=== PATIENT | male | born 1985 | race Caucasian/White ===

== ENCOUNTER 2016-11-23 14:37 | Emergency (ER) | payer SELFPAY ==
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
--- NOTE | 2016-11-23 16:05 | ED ORDER SUMMARY ---
..... Patient: JUAN CARLOS SALDANA OrderSheet [facility] VisitID: [id number] [address] [place] [address] 31y, M Registration Date/Time: 11/23/2016 ORDER SHEET Weight: 86.1 kg (estimated) Allergies: None GENERAL ORDERS: Lumbar Spine 2 or 3V Urgent (15:12 11/23/2016 HBivens A.R.N.P.) ([facility] (15:52 MC[facility]) Knee 4V Right Urgent (15:12 11/23/2016 HBivens A.R.N.P.) (15:13 HBivens A.R.N.P.) (Cancelled: Other15:13 HBivens A.R.N.P.) Knee 4V Right Urgent (15:36 11/23/2016 HBivens A.R.N.P.) (Ack 15:43 [facility] (15:52 MCampbell) MEDICATION ORDERS: IV FLUIDS: ORDER SHEET NOTES: [Electronically signed by Julia DockeryR.N.PBello (16:51 11/23/2016)] [Electronically signed by Fiorella Jackson R.N. (07:19 11/30/2016)] [Electronically locked/signed by Fiorella Jackson R.N. (07:19 11/30/2016)]
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
--- NOTE | 2016-11-23 16:05 | ED ORDER SUMMARY ---
..... Patient: JUAN CARLOS SALDANA OrderSheet [facility] VisitID: [id number] [address] [place] [address] 31y, M Registration Date/Time: 11/23/2016 ORDER SHEET Weight: 86.1 kg (estimated) Allergies: None GENERAL ORDERS: Lumbar Spine 2 or 3V Urgent (15:12 11/23/2016 HBivens A.R.N.P.) (Ack 15:34 [facility] (15:52 MCampbell) Knee 4V Right Urgent (15:12 11/23/2016 HBivens A.R.N.P.) (15:13 HBivens A.R.N.P.) (Cancelled: Other15:13 HBivens A.R.N.P.) Knee 4V Right Urgent (15:36 11/23/2016 HBivens A.R.N.P.) (Ack 15:43 [facility] (15:52 MCampbell) MEDICATION ORDERS: IV FLUIDS: ORDER SHEET NOTES: [Electronically signed by Julia DockeryR.N.PBello (16:51 11/23/2016)] [Electronically signed by Fiorella Jackson R.N. (07:19 11/30/2016)] [Electronically locked/signed by Fiorella Jackson R.N. (07:19 11/30/2016)]
--- NOTE | 2016-11-30 07:20 | ED MAR SUMMARY ---
..... Medication Administration Record [facility] [address], [place] [id number] Patient: JUAN CARLOS SALDANA Visit ID: [id number] 31y, M Weight: 86.1 kg Height/Length: 71 in BMI: 26.5 ALLERGIES: None
--- NOTE | 2016-11-30 07:20 | ED MED RECONCILIATION SUMMARY ---
Patient: JUAN CARLOS SALDANA Medication Reconciliation Report [facility] VisitID: [id number] [place] [address] 31y, M Registration Date/Time: 11/23/2016 Weight: 86.1 kg Height/Length: 71 in. BMI: 26.5 ALLERGIES: None The patient's Home Medications are listed below: NONE. The source(s) of the original Home Medication information: Not obtained. The following Medications were given to the patient in the Emergency Department: None. The following Medications were prescribed to the patient: Naproxen 500 mg tablets: take 1 orally every 12 hours as needed for pain. Dispense twenty (20). No refills. -- Julia Dockery A.R.NBelloP. Flexeril 10 mg: Take 1 orally every 8 hours as needed for muscle spasm. Dispense twenty (20). No refills. Substitution is permissible. -- Julia Dockery A.R.NBelloP.
--- NOTE | 2016-11-30 07:20 | ED MED RECONCILIATION SUMMARY ---
Patient: JUAN CARLOS SALDANA Medication Reconciliation Report [facility] VisitID: [id number] [place] [address] 31y, M Registration Date/Time: 11/23/2016 Weight: 86.1 kg Height/Length: 71 in. BMI: 26.5 ALLERGIES: None The patient's Home Medications are listed below: NONE. The source(s) of the original Home Medication information: Not obtained. The following Medications were given to the patient in the Emergency Department: None. The following Medications were prescribed to the patient: Naproxen 500 mg tablets: take 1 orally every 12 hours as needed for pain. Dispense twenty (20). No refills. -- Julia Dockery A.R.NBelloP. Flexeril 10 mg: Take 1 orally every 8 hours as needed for muscle spasm. Dispense twenty (20). No refills. Substitution is permissible. -- Julia Dockery A.R.NBelloP.
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
--- NOTE | 2016-11-30 07:20 | ED MAR SUMMARY ---
..... Medication Administration Record [facility] [address] [place], [place] [id number] Patient: JUAN CARLOS SALDANA Visit ID: [id number] 31y, M Weight: 86.1 kg Height/Length: 71 in BMI: 26.5 ALLERGIES: None
== END 2016-11-23 16:32 | disposition home or self-care (01) ==
LOC: ED SRH 14:37
DX: S39.012A Strain of muscle, fascia and tendon of lower back, initial encounter (principal); S16.1XXA Strain of muscle, fascia and tendon at neck level, initial encounter; V53.6XXA Passenger in pick-up truck or van injured in collision with car, pick-up truck or van in traffic accident, initial encounter; Y93.9 Activity, unspecified; Y99.9 Unspecified external cause status; Y92.9 Unspecified place or not applicable; Z72.0 Tobacco use